=== PATIENT | male | born 1980 | race African-American/Black ===

== ENCOUNTER 2021-07-28 13:03 | Emergency (ER) | payer MEDICAID ==
[~2021-07-28] VITALS: Ht 185.4 cm; Wt 86.2 kg
--- NOTE | 2021-07-28 13:51 | NUR ---
TO ER BED 1 AWAITING MD MONTEJO
--- NOTE | 2021-07-28 15:16 | NUR ---
PATIENT C/O LUMP IN THE TESTICLE.AXOX4.NOT IN ANY DISTRESS.DENES ANY PAIN.
--- NOTE | 2021-07-28 15:36 | NUR ---
PATIENT IS READY FOR DISCHARGE.
[2021-07-28 15:47] VITALS: BP 127/71
--- NOTE | 2021-07-28 15:48 | NUR ---
Patient discharged to home in stable condition. Written and verbal after care instructions given. Patient verbalizes understanding of instruction.
== END 2021-07-28 15:48 | disposition home or self-care (01) ==
LOC: ER 13:14
DX: N43.3 Hydrocele, unspecified (principal); F17.200 Nicotine dependence, unspecified, uncomplicated
CPT/HCPCS: 76870-TC

== ENCOUNTER 2022-12-23 09:20 | Emergency (ER) | payer MEDICAID ==
[~2022-12-23] VITALS: Ht 193 cm; Wt 86.2 kg
--- NOTE | 2022-12-23 09:38 | NUR ---
DR WEN AT BEDSIDE FOR EVAL.
--- NOTE | 2022-12-23 09:50 | NUR ---
CRITICAL CARE REGISTERED NURSE AT BEDSIDE FOR BLOOD DRAW.
--- NOTE | 2022-12-23 09:50 | NUR ---
Dwaine mayfield in [facility] - 12/23/22 at 1115 by BESSIE DAIRY HUSBANDMAN AT BEDSIDE FOR PABLOAL.
[2022-12-23] MEDS ORDERED: FAMOTIDINE/PF INJ 20 MG/2 ML VIAL IV ONE (10:00)
[2022-12-23] MEDS ORDERED: LIDOCAINE VISCOUS 2% UD 15 ML UDC MM ONE (10:00)
[2022-12-23] MEDS ORDERED: MAG HYDROX/AL HYDROX/SIMETH 30 ML UDC PO ONE (10:00)
[2022-12-23] MEDS ORDERED: LIDOCAINE VISCOUS 2% UD 15 ML UDC ONE (10:21)
[2022-12-23] MEDS ORDERED: MAG HYDROX/AL HYDROX/SIMETH 30 ML UDC ONE (10:21)
[2022-12-23] MEDS ORDERED: FAMOTIDINE (20 MG) 20 MG TABLET ONE (10:24)
[2022-12-23 10:25] LABS: BILIRUBIN,URINE NEGATIVE (NEGATIVE); COLOR,URINE YELLOW (YELLOW); LEUKOCYTE ESTERASE ,URINE NEGATIVE (NEGATIVE); NITRITE, URINE NEGATIVE (NEGATIVE); PH,URINE 6.5 (5.0-8.0); PROTEIN,URINE NEGATIVE (NEGATIVE); UGLUCOSE NEGATIVE (NEGATIVE); UROBILINOGEN,URINE 0.2 EU/dL (0.2)
[2022-12-23 10:27] LABS: BASOPHILS % (AUTO) 0.7 % (0.0-2.0); EOSINOPHILS % (AUTO) 2.3 % (0.0-6.0); HEMATOCRIT 49 % (39-51); HEMOGLOBIN 16.3 g/dL (13.5-17.5); LYMPHOCYTES # (AUTO) 2.7 K/uL (0.8-4.8); LYMPHOCYTES % (AUTO) 42.4 % (20.0-44.0); MEAN CORPUSCULAR HGB CONC 33 g/dl (31.0-36.0); MEAN CORPUSCULAR VOLUME 94 fL (80-96); MONOCYTES # (AUTO) 0.5 K/uL (0.1-1.30); MONOCYTES % (AUTO) 8.6 % (2.0-12.0); NEUTROPHILS # (AUTO) 2.9 K/uL (1.8-8.9); PLATELET COUNT (AUTO) 158 K/uL (150-450); RED BLOOD CELL COUNT(AUTO) 5.23 MIL/uL (4.5-6.0); WHITE BLOOD COUNT (AUTO) 6.3 K/uL (4.3-11.0)
--- NOTE | 2022-12-23 10:28 | NUR ---
U/S TECH AT BEDSIDE FOR GALL BLADDER ULTRASOUND
[2022-12-23 10:49] LABS: ALBUMIN 3.8 g/dL (3.4-5.0); BILIRUBIN,DIRECT 0.2 mg/dL (0.0-0.2); BILIRUBIN,TOTAL 0.9 mg/dL (0.2-1.0); CALCIUM, SERUM 9.2 mg/dL (8.5-10.1); CREATININE 1.2 mg/dL (0.6-1.3); POTASSIUM 4.2 mmol/L (3.5-5.1); TOTAL PROTEIN, SERUM 7.7 g/dL (6.4-8.2)
[2022-12-23] MEDS ORDERED: FAMOTIDINE (20 MG) 20 MG TABLET PO ONE (11:00)
[2022-12-23] MEDS ORDERED: FAMO-131 PO (11:43)
[2022-12-23] MEDS ORDERED: ONDA4TAB5 PO (11:43)
[2022-12-23 12:27] VITALS: BP 130/72
== END 2022-12-23 12:28 | disposition home or self-care (01) ==
LOC: ER 09:34
DX: R10.13 Epigastric pain (principal); R11.2 Nausea with vomiting, unspecified; F17.200 Nicotine dependence, unspecified, uncomplicated; Z79.899 Other long term (current) drug therapy
CPT/HCPCS: 36415; 76705-TC; 80048-TC; 80076-TC; 83690-TC; 85025-TC